=== PATIENT | female | born 1995 | race Caucasian/White ===

== ENCOUNTER 2016-05-21 21:50 | Emergency (ER) | payer OTHER ==
[~2016-05-21] VITALS: Ht 170.2 cm; Wt 75.9 kg
[~2016-05-21 21:50] MED LIST: CLIN-78 PO; ONDA8TAB10 PO; OXYC1TAB24 PO
[2016-05-21 21:54] VITALS: BP 118/74; PULSE 103; RESP 16; O2SAT 97
--- NOTE | 2016-05-21 21:59 | ED.REPORT ---
HPI-General Illness Date of Service May 21, 2016 ED Provider: Dr. Benito Pt is a 20 y/o healthy female presenting to the ED with multiple medical complaints onset yesterday. Pt reports intermittent severe abdominal pain, migraine headache, fever (101 F yesterday, improved today), chills. Her last bowel movement was yesterday. She denies diarrhea, vomiting. She has no history of abdominal surgeries. Nursing Notes Stated Complaint: HEADACHE,STOMACH PAIN,FEVER Chief Complaint: FLU/Cold Symptoms Nursing Notes Reviewed: Yes Allergies: Coded Allergies: No Known Allergies (Unverified Allergy, Unknown, 08/15/15) Scheduled Clindamycin (Clindamycin) 300 Mg Capsule 300 MG PO QID Polyethylene Glycol 3350 (Miralax) 17 Gm Powd.pack 17 GM PO BID Scheduled PRN Ondansetron ODT (Ondansetron ODT) 8 Mg Tab.rapdis 8 MG PO Q4H PRN PRN For Nausea Take 10 minutes before (or with) pain medication as needed to prevent nausea. oxyCODONE-Acetaminophen 5-325 mg (oxyCODONE-Acetaminophen 5-325 mg) 1 Each Tablet 0.5-1 TAB PO Q4H PRN PRN For Pain General Time Seen by MD: 21:59 Chief Complaint Multip medical complaints Hx Obtained From: Patient Arrived By: Walk-in Sudden in Onset?: No Onset Occurred: Yesterday Symptom Duration: Intermittent Location: : Abdomen Quality: Painful Severity: Current: Mild Severity: Maximum: Severe Similar Sx Previous: No Past Medical History Past Medical History none reported Past Surgical History none reported Smoking History Unknown if Ever Smoker Social History Alcohol Use: Denies alcohol use Drug Use: Denies drug use Other Social History: Ambulatory Status Independent Review of Systems Full Review of Systems Constitutional: Reports: Chills, Fever GI: Reports: Abdominal pain, Nausea, Denies: Diarrhea, Vomiting Neurologic: Reports: Headache Complete sys rev & neg: except as marked. Physical Exam Vital Signs Vital Signs Date Time Temp Pulse Resp B/P Pulse Ox O2 Delivery O2 Flow Rate FiO2 05/22/16 01:38 36.2 65 16 108/59 98 Room Air 05/21/16 21:54 36.4 103 16 118/74 97 Room Air Initial VS: Reviewed, Vital signs normal Head / Eyes: Atraumatic, Normocephalic, PERRL Respiratory: Breath sounds normal, Clear to auscultation, No respiratory distress Cardiovascular: Regular rate & rhythm, Heart sounds normal, Intact distal pulses Extremities: Vascular intact, Neuro intact, No swelling, No tenderness Skin: Warm, Dry, No cyanosis Neurologic: Alert, Oriented, Nonfocal Psychiatric: Mood/affect normal, Behavior normal, Normal thought content General/Constitutional: Awake, Alert, No acute distress, Cooperative, Not toxic appearing ENT: Atraumatic, Airway patent, Mucous membranes moist, Pharynx NL Cerumen impaction bilaterally Neck: Atraumatic, Supple, No meningismus, Full range of motion, No adenopathy Abdomen: Atraumatic, Soft, No distention, No palpable mass Tenderness/Guarding/Rebound: Positive: Guarding involuntary, Tender RUQ... ( Mild), Tender suprapubic (mild) Interpretation & Diagnostics Lab Results Interpretation Result Diagram: 05/21/16 2310 05/21/16 2310 Test 05/21/16 23:10 05/22/16 01:00 White Blood Count 7.2th/mm3 (3.8-10.1) Red Blood Count 4.73mil/mm3 (3.90-5.20) Hemoglobin 13.2g/dL (12.0-15.6) Hematocrit 40.7% (35.0-46.0) Mean Corpuscular Volume 86.0fL (81-100) Mean Corpuscular Hemoglobin 27.9pg (27.0-35.0) Mean Corpuscular Hemoglobin Concent 32.4% (32.0-37.0) Red Cell Distribution Width 13.1% (12.3-15.4) Platelet Count 289bil/L (150-400) Neutrophils (%) (Auto) 62.4% (40-74) Lymphocytes (%) (Auto) 22.1% (14-46) Monocytes (%) (Auto) 13.1% (4-12) Eosinophils (%) (Auto) 1.7% (0-5) Basophils (%) (Auto) 0.7% (0-3) Sodium Level 139mEq/L (134-144) Potassium Level 3.9mEq/L (3.5-5.2) Chloride Level 103mEq/L (97-108) Carbon Dioxide Level 23mmol/L (18-29) Blood Urea Nitrogen 13mg/dL (6-20) Creatinine 0.65mg/dL (0.57-1.00) Estimat Glomerular Filtration Rate 165mL/min (>59) Glucose Level 117mg/dL (60-99) Calcium Level 9.0mg/dL (8.5-10.1) Magnesium Level 2.2mg/dL (1.6-2.6) Total Bilirubin 0.2mg/dL (0.0-1.2) Aspartate Amino Transf (AST/SGOT) 15U/L (0-50) Alanine Aminotransferase (ALT/SGPT) 12U/L (0-32) Alkaline Phosphatase 61U/L (25-150) Total Protein 7.8g/dL (6.4-8.4) Albumin 4.0g/dL (3.4-5.0) Lipase 23U/L (13-60) Hold Chavez Top Tube Received (Received) Urine Color Yellow (YELLOW) Urine Appearance Clear (CLEAR,HAZY) Urine pH 7.0 (5.0-8.0) Urine Specific [place] 1.010 (1.003-1.035) Urine Protein Negativemg/dL (NEG,TRACE) Urine Glucose (UA) Negativemg/dL (NEGATIVE) Urine Ketones Negativemg/dL (NEGATIVE) Urine Occult Blood Negative (NEGATIVE) Urine Nitrite Negative (NEGATIVE) Urine Bilirubin Negative (NEGATIVE) Urine Urobilinogen 1.0mg/dL (NORMAL) Urine Leukocyte Esterase Negative (NEGATIVE) Urine RBC 0-2/hpf (0-2) Urine WBC 0-5/hpf (0-5) Urine Epithelial Cells Occasional/hpf (NONE-MOD) Urine Crystals None seen (NONE SEEN) Urine Bacteria Few/hpf (NONE-FEW) Urine Hyaline Casts None/lpf (NONE) Urine Granular Casts None seen (NONE SEEN) Urine Waxy Casts None seen (NONE SEEN) Urine Red Blood Cell Casts None seen (NONE SEEN) Urine White Blood Cell Casts None seen (NONE SEEN) Urine Mucus None seen (None Seen) Urine Trichomonas None seen (NONE SEEN) Urine Yeast None (NONE SEEN) Urine Culture Reflexed Not indicated X-Ray Abdominal Interpretation Moderate stool load. Mild air fluid levels. Study: 4 view Interpretation / Wet Read by: Interpret - Radiologist Re-Eval/Medical Decision Med Decision/Clinical Course 20-year-old healthy female presenting with abdominal pain that started this morning. Labs and vitals are normal. Abdominal exam reveals mild tenderness of the right upper quadrant and epigastrium. Pain improved but not completely relieved by Tylenol, Toradol, and GI cocktail. I offered CT scan of the abdomen but the patient declined and would prefer to observe symptoms, return if worsening. She will follow up with her regular doctor next week, return if symptoms worsen Time of Eval: 00:03 Patient Status: Condition improved Re-Evaluation/Progress Note: Pt rechecked. Her pain seems to be about the same. Will attempt a GI cocktail. Time of Eval: 00:57 Re-Evaluation/Progress Note: No relief with GI cocktail. Discussed whether or not the patient would like a CT scan tonight or have close follow-up. She would like to be discharged and have close follow-up or return if she gets worse. I feel like this is appropriate. Counseled Regarding: Diagnosis, Lab results, Need for follow-up, When/why to return to ED Discharge & Departure Primary Impression: Abdominal pain Abdominal location: unspecified location Qualified Code: R10.9 - Unspecified abdominal pain Additional Impression: Constipation Constipation type: unspecified constipation type Qualified Code: K59.00 - Constipation, unspecified Disposition: Home Discharge Condition All VS Reviewed: Yes Condition: Stable Patient Instructions: Acute Abdominal Pain (ED) Additional Instructions: Your labs today were normal. The abdominal x-ray showed a moderate amount of stool, but was otherwise normal. I am concerned that your abdominal pain persisted throughout your stay despite several treatments, but there is no immediate life threatening cause was identified. Your symptoms may be due to inflammation of the gallbladder, which is commonly associated with right upper abdominal pain, especially after eating. Your symptoms and labs are not consistent with appendicitis, which is almost always associated with right lower abdominal pain and often accompanied by fever. I would like you to have close outpatient follow-up regarding this. Please see your doctor next week. Call Monday morning to make an appointment. I would recommend you see your MD physician rather than your chiropractor as this does not seem to be musculoskeletal. Return to the emergency department for worsening pain, uncontrolled vomiting, if you develop a high fever, or for other emergent concerns. Referrals: Katherine Alexandra PA-C (PCP) Scribe Attestation Portions of this note were transcribed by Simone Simmons. I, Dr. Benito personally performed the history, physical exam and medical decision-making; I reviewed and confirmed the accuracy of the information in the transcribed note. Akira Torres, 05/21/[id number] copies to: Katherine Alexandra PA-C, Gary R DO May 21, 2016 21:59 SIMONE SIMMONS May 21, 2016 22:39
[2016-05-21] MEDS ORDERED: 0.9% Sodium Chloride 1,000 ML IV ONE ×2 (22:37)
[2016-05-21] MEDS ORDERED: Ondansetron 2 mg/mL 2 mL Inj IVPUSH ONE (22:40)
--- NOTE | 2016-05-21 22:53 | NUR ---
[facility] Note Patient asked staff for some more blankets. This hydropress operator brought her some and at this time asked how she was feeling. Patient began to tear up. She sincerely stated that that's really all she needed. Patient's mother was in the emergency room for a heart attack and a stroke within the last year in addition to her sister/brother having two miscarriages. Patient stated that being in a hospital setting has become common place but this is the first time she has been the patient. She stated that she was worried about being here and wanted to go home because she felt obligated to be strong for her family as well as herself. Patient was comforted and supported by her significant other. She appears logical and linear and is future oriented, just looking forward to discharge.
[2016-05-21 23:33] LABS: BASOPHILS % (AUTO) 0.7 % (0-3); EOSINOPHILS % (AUTO) 1.7 % (0-5); MONOCYTES % (AUTO) 13.1 % (4-12); Mean Corpuscular Hemoglobin 27.9 pg (27.0-35.0); NEUTROPHILS % (AUTO) 62.4 % (40-74); Platelet Count 289 bil/L (150-400)
[2016-05-21 23:52] LABS: Magnesium 2.2 mg/dL (1.6-2.6)
[2016-05-22] MEDS ORDERED: Alum-Mag Hydrox-Simeth 30 mL Suspension PO ONE (00:10)
[2016-05-22] MEDS ORDERED: POLY17PO6 PO (01:24)
[2016-05-22 01:25] LABS: APPEARANCE,URINE CLEAR (CLEAR,HAZY); COLOR,URINE YELLOW (YELLOW); OCCULT BLOOD,URINE NEGATIVE (NEGATIVE)
[2016-05-22 01:38] VITALS: BP 108/59; PULSE 65; RESP 16; O2SAT 98
--- NOTE | 2016-05-22 09:02 | DRSVH ---
PROCEDURE: X-RAY ACUTE ABDOMINAL SERIES ([id number]) INDICATIONS: abdominal pain TECHNIQUE: One view chest and two views of the abdomen were acquired. COMPARISON: None. FINDINGS: Surgical changes and devices: None. Chest: Lungs are clear. Heart size is normal. No pleural effusions. No pneumoperitoneum. Abdomen: Bowel gas pattern is nonspecific. A few, scattered air-fluid levels without differential he ight are noted in the right lower quadrant of the abdomen. No suspicious calcifications. Visualized solid organ contours appear normal. Bones: No suspicious bony lesions. IMPRESSION: Nonspecific bowel gas pattern without definite evidence of obstruction. Follow up imaging is warranted if patient's symptoms persist or worsen. Dictated by: Christie Whitaker MD, PhD on 05/22/2016 at 9:00 Approved by: Christie Whitaker MD, PhD on 05/22/2016 at 9:00
== END 2016-05-22 01:39 | disposition home or self-care (01) ==
LOC: SED 21:50
DX: R10.11 Right upper quadrant pain (principal); R10.30 Lower abdominal pain, unspecified; K59.00 Constipation, unspecified; G43.909 Migraine, unspecified, not intractable, without status migrainosus; R50.9 Fever, unspecified
CPT/HCPCS: 36415; 74022; 80053; 81000; 81025; 83690; 83735; 85025; 87804; 96361; 96374; 96375; 99285; J2405; J7030